=== PATIENT | male | born 1975 | race Caucasian/White ===

== ENCOUNTER 2021-06-23 02:35 | Inpatient (IN) | payer SELFPAY ==
[~2021-06-23] VITALS: Ht 185.4 cm; Wt 90.3 kg
[2021-06-23 03:30] LABS: HEMOGLOBIN 9.4 gm/dl (14.0-17.5); RED BLOOD COUNT 2.94 M/UL (4.20-5.50)
[2021-06-23] MEDS ORDERED: NIFEDIPINE ER60 M1 PO (11:18)
[2021-06-23] MEDS ORDERED: BAYER MIGRAINE1 EACH PO (11:19)
[2021-06-23 15:36] LABS: RED BLOOD COUNT 2.83 M/UL (4.20-5.50); WHITE BLOOD COUNT 6.4 K/UL (4.5-11.0)
[2021-06-24 08:14] LABS: HIV SCREEN 4TH GENERATION WRFX Non Reactive (Non Reactive)
[2021-06-24 08:15] LABS: HEMOGLOBIN 8.9 gm/dl (14.0-17.5); RED BLOOD COUNT 2.8 M/UL (4.20-5.50); WHITE BLOOD COUNT 5.3 K/UL (4.5-11.0)
[2021-06-24 09:14] LABS: HBSAG SCREEN Negative (Negative); HEP B CORE AB, TOT Negative (Negative); HEP C VIRUS AB >11.0 (0.0-0.9)
--- NOTE | 2021-06-24 10:03 | NUR ---
0945- CALLED CMP RESULTS TO DR BETANCOURT PER ORDER. NO NEW ORDERS AT THIS TIME.
[2021-06-24 11:14] LABS: COMPLEMENT C3, SERUM 113 mg/dL (82-167); COMPLEMENT C4, SERUM 23 mg/dL (12-38)
[2021-06-24 13:14] LABS: ANTI-DSDNA ANTIBODIES <1 IU/mL (0-9)
[2021-06-24 15:14] LABS: A/G RATIO 1.1 (0.7-1.7); ALBUMIN 3.4 g/dL (2.9-4.4); ALPHA-1-GLOBULIN 0.3 g/dL (0.0-0.4); ALPHA-2-GLOBULIN 0.6 g/dL (0.4-1.0); BETA GLOBULIN 0.8 g/dL (0.7-1.3); GAMMA GLOBULIN 1.4 g/dL (0.4-1.8); GLOBULIN, TOTAL 3.2 g/dL (2.2-3.9); IMMUNOGLOBULIN A, QN, SERUM 190 mg/dL (90-386); IMMUNOGLOBULIN G, QN, SERUM 1357 mg/dL (603-1613); IMMUNOGLOBULIN M, QN, SERUM 35 mg/dL (20-172); M-SPIKE Not Observed g/dL (Not Observed); PROTEIN, TOTAL, SERUM 6.6 g/dL (6.0-8.5)
[2021-06-24 16:14] LABS: ATYPICAL PANCA <1:20 titer (Neg:<1:20); CYTOPLASMIC (C-ANCA) <1:20 titer (Neg:<1:20); PERINUCLEAR (P-ANCA) <1:20 titer (Neg:<1:20)
[2021-06-25 08:11] LABS: HEMOGLOBIN 8.6 gm/dl (14.0-17.5); RED BLOOD COUNT 2.82 M/UL (4.20-5.50); WHITE BLOOD COUNT 5.9 K/UL (4.5-11.0)
[2021-06-26 06:26] LABS: HEMOGLOBIN 9.3 gm/dl (14.0-17.5); RED BLOOD COUNT 2.98 M/UL (4.20-5.50); WHITE BLOOD COUNT 6.6 K/UL (4.5-11.0)
[2021-06-27 05:45] LABS: RED BLOOD COUNT 3.21 M/UL (4.20-5.50); WHITE BLOOD COUNT 6.8 K/UL (4.5-11.0)
[2021-06-28 06:39] LABS: HEMOGLOBIN 9.6 gm/dl (14.0-17.5); RED BLOOD COUNT 3.07 M/UL (4.20-5.50); WHITE BLOOD COUNT 7.8 K/UL (4.5-11.0)
[2021-06-29 07:04] LABS: HEMOGLOBIN 9.4 gm/dl (14.0-17.5); RED BLOOD COUNT 3.03 M/UL (4.20-5.50); WHITE BLOOD COUNT 7.8 K/UL (4.5-11.0)
[2021-06-30] MEDS ORDERED: CARVEDILOL3.125 MG PO (14:51)
[2021-06-30] MEDS ORDERED: SODIUM BICARBO650 M1 PO (14:51)
[2021-06-30] MEDS ORDERED: PROTONIX 40 MG40 M1 PO (14:51)
[2021-06-30] MEDS ORDERED: POLYETHYLENE GL17 GM PO (14:51)
[2021-06-30] MEDS ORDERED: FERROUS SULFAT325 M2 PO (14:56)
[2021-06-30] MEDS ORDERED: HYDRALAZINE HCL25 MG PO (14:56)
[2021-06-30 20:09] LABS: HCV LOG10 6.362 (.); HEPATITIS C QUANTITATION 2300000 IU/mL (.)
== END 2021-06-30 16:53 | disposition home or self-care (01) | DRG 683 ==
LOC: ER1 02:35 → CDU 08:31 → MED SURG 4 08:31
PROVIDERS: Internal Medicine; Internal Medicine Nephrology; Physician Assistant; Physician Assistant Medical; ADMIT Internal Medicine
DX: N17.9 Acute kidney failure, unspecified (principal); E87.2 Acidosis; D50.9 Iron deficiency anemia, unspecified; Z20.822 Contact with and (suspected) exposure to COVID-19; K40.90 Unilateral inguinal hernia, without obstruction or gangrene, not specified as recurrent; I16.0 Hypertensive urgency; M10.9 Gout, unspecified; I12.9 Hypertensive chronic kidney disease with stage 1 through stage 4 chronic kidney disease, or unspecified chronic kidney disease; N18.9 Chronic kidney disease, unspecified; B19.20 Unspecified viral hepatitis C without hepatic coma; D63.1 Anemia in chronic kidney disease; F15.10 Other stimulant abuse, uncomplicated; F17.210 Nicotine dependence, cigarettes, uncomplicated; Z84.1 Family history of disorders of kidney and ureter; Z83.3 Family history of diabetes mellitus
CPT/HCPCS: 0240U; 36415; 80048; 80053; 80076; 80307; 81001; 82550; 82553; 82570; 82607; 82728; 82746; 82784; 82803; 83520; 83540; 83550; 83690; 83735; 83874; 83883; 84155; 84156; 84165; 85025; 85027; 86038; 86060; 86160; 86162; 86225; 86256; 86334; 86704; 86706; 86708; 86803; 87086; 87340; 87389; 87522; 89050; 93005; 99285; G0480; J0360; J1644; J7030; P9047